=== PATIENT | female | born 1940 | race Caucasian/White ===

== ENCOUNTER → 2018-01-10 | Outpatient (CLI) | payer MEDICARE ==
[~2018-01-10] MED LIST: ASPIRIN81 M1 PO; ATENOLOL100 MG PO; CALTRATE 600 +1 TA1; CENTRUM1 TAB; LIPITOR10 MG PO; POTASSIUM1 PDS; VITAMIN C; VITAMIN D
== END | disposition home or self-care (01) ==
LOC: RAD 15:35
DX: M25.511 Pain in right shoulder (principal)

== ENCOUNTER → 2018-10-30 | Outpatient (CLI) | payer MEDICARE | END | disposition home or self-care (01) | LOC: RAD 15:27 | DX: J20.8 Acute bronchitis due to other specified organisms (principal) ==

== ENCOUNTER → 2021-07-03 | Outpatient (CLI) | payer MEDICARE | END | disposition home or self-care (01) | LOC: US 01:14 | PROVIDERS: ATTEND Nurse Practitioner Primary Care | DX: K76.0 Fatty (change of) liver, not elsewhere classified (principal); Z13.820 Encounter for screening for osteoporosis; R74.8 Abnormal levels of other serum enzymes; Z90.49 Acquired absence of other specified parts of digestive tract; Z78.0 Asymptomatic menopausal state ==